=== PATIENT | female | born 1950 | race Caucasian/White ===

== ENCOUNTER → 2018-03-03 | Outpatient (CLI) | payer OTHER ==
--- NOTE | 2018-03-03 10:15 | RAD ---
Right wrist, 3 views, 03/03/2018: HISTORY: Fall, wrist pain There is patchy bony demineralization. No recent fracture or dislocation is identified. IMPRESSION: No acute bony abnormality is detected. Electronically signed by: Stone Santiago MD (03/03/2018 10:10 AM) [facility]
== END | disposition home or self-care (01) ==
LOC: RAD 08:56
PROVIDERS: ATTEND Family Medicine
DX: M25.531 Pain in right wrist (principal); W19.XXXA Unspecified fall, initial encounter; Y93.89 Activity, other specified; Y92.89 Other specified places as the place of occurrence of the external cause; Y99.8 Other external cause status
CPT/HCPCS: 73110